=== PATIENT | female | born 1985 | race Caucasian/White ===

== ENCOUNTER 2024-07-11 18:50 | Emergency (ER) | payer MEDICAID, OTHER ==
[~2024-07-11] VITALS: Ht 180.3 cm; Wt 91.0 kg
[2024-07-11 18:55] VITALS: TEMP 36.8; O2SAT 99
[2024-07-11 19:46] LABS: BASOPHILS % 0.5 % (0.0-2.0); EOSINOPHILS % 2.1 % (0.0-5.0); HEMATOCRIT. 35.2 % (36.0-48.0); HEMOGLOBIN. 11.4 g/dL (12.0-16.0); LYMPHOCYTES % 36.2 % (20.0-50.0); MEAN CORPUSCULAR HEMOGLOBIN 28.7 pg (28.0-32.0); MEAN CORPUSCULAR HGB CONC 32.3 g/dL (31.0-37.0); MEAN CORPUSCULAR VOLUME 88.9 fL (81.0-99.0); MEAN PLATELET VOLUME 8.5 fl (7.4-10.4); MONOCYTES % 6.4 % (2.0-8.0); NEUTROPHILS % 54.8 % (40.0-76.0); PLATELET 245 x1000/uL (130-400); RED BLOOD CELL COUNT 3.97 mill/uL (4.2-5.4); RED CELL DISTRIBUTION WIDTH 13.7 % (11.6-14.6); WHITE BLOOD COUNT 6.9 x1000/uL (4.5-11.0)
[2024-07-11] MEDS: SODIUM CHLORIDE 0.9% 1,000 ML IV ONE (19:48)
[2024-07-11 19:52] LABS: CHLORIDE 103 mEq/L (98-107); POTASSIUM 4.4 mEq/L (3.5-5.1); SODIUM 137 mEq/L (136-145)
[2024-07-11 19:53] LABS: CALCIUM 8.7 mg/dL (8.7-10.4); CARBON DIOXIDE 26 mEq/L (21-32)
[2024-07-11 19:56] LABS: PROTHROMBIN TIME 10.7 sec (9.6-11.0)
[2024-07-11 19:58] LABS: CREATININE 0.7 mg/dL (0.6-1.0); HCG SCREEN NEGATIVE; UREA NITROGEN BLOOD 10 mg/dL (9-23)
[2024-07-11 20:09] LABS: BETA HYDROXYBUTYRATE 0.2 mMol/L (0.0-0.3)
[2024-07-11 20:29] LABS: ETHANOL BLOOD < 10 mg/dL (<10); GLUCOSE 435 mg/dL (70-105)
[2024-07-11 20:30] LABS: TROPONIN I HIGH SENSITIVITY < 4 ng/L (3.0-34)
[2024-07-11 20:35] LABS: CLARITY URINE CLEAR (CLEAR); COLOR URINE YELLOW (YELLOW); GLUCOSE URINE 3+ (NEGATIVE); KETONES URINE 2+ (NEGATIVE); LEUKOCYTE ESTERASE URINE NEGATIVE (NEGATIVE); NITRITE URINE NEGATIVE (NEGATIVE); OCCULT BLOOD URINE NEGATIVE (NEGATIVE); PH URINE 6.5 (4.5-8.0); PROTEIN URINE NEGATIVE (NEGATIVE); SPECIFIC GRAVITY URINE 1.032 (1.005-1.030); UROBILINOGEN URINE 0.2 E.U./dL (0.2-1.0)
[2024-07-11 20:43] LABS: BACTERIA URINE NONE SEEN; RBC URINE 0-2 /hpf (0-2); SQUAMOUS EPITHELIAL CELL URINE 1+ /lpf (RARE/1+); WBC URINE 0-2 /hpf (0-2)
[2024-07-11 20:53] LABS: *AMPHETAMINES SCREEN URINE NEGATIVE (NEGATIVE); *BARBITURATES SCREEN URINE NEGATIVE (NEGATIVE); *BENZODIAZEPINES SCREEN URINE NEGATIVE (NEGATIVE); *COCAINE SCREEN URINE NEGATIVE (NEGATIVE)
[2024-07-11 20:54] LABS: CANNABINOID URINE SCREEN NEGATIVE (NEGATIVE); ECSTASY MDMA SCREEN URINE NEGATIVE (NEGATIVE); METHADONE URINE SCREEN NEGATIVE (NEGATIVE); OPIATES URINE SCREEN NEGATIVE (NEGATIVE); PHENCYCLIDINE URINE SCREEN NEGATIVE (NEGATIVE)
[2024-07-11] MEDS: INSULIN REGULAR (HUMULIN R) 1000UNITS/10ML VIAL IV NR (20:57)
[2024-07-11 21:30] VITALS: BP 135/77; PULSE 71; RESP 12; O2SAT 100
== END 2024-07-11 21:44 | disposition home or self-care (01) ==
LOC: ER 18:50 → EDBEDREQ 19:03 → CANBEDREQ 21:22 → ER 21:44
DX: E11.65 Type 2 diabetes mellitus with hyperglycemia (principal); I10 Essential (primary) hypertension
CPT/HCPCS: 80305; 80048; 81003; 82010; 80320; 82962; 84703; 83880; 85025; 85610; 84484; 36415; 71045; 70450; 72125; 93005; 96361; 96374; 99291; J1815; J7030; G0480